=== PATIENT | female | born 1965 | race Two or more races ===

== ENCOUNTER → 2018-01-17 | Outpatient (CLI) | payer OTHER ==
[~2018-01-17] MED LIST: HYDR-2966 PO; IRON150C19 PO
--- NOTE | 2018-01-18 10:49 | RADIOLOGY IMAGING REPORT ---
FACILITY: [facility] PATIENT NAME: JAVI VALDOVINOS : [id number] MR: [id number] V: [id number] EXAM DATE: [id number] ORDERING PHYSICIAN: PEEWEE GLORIA TECHNOLOGIST: Elidia Bruno PROCEDURE:BILATERAL DIGITAL SCREENING MAMMOGRAM WITH CAD ASSISTED INTERPRETATION & 3D TOMOSYNTHESIS COMPARISON:Prior mammograms 06/12/12. INDICATIONS:screening FINDINGS: A small to moderate amount of fibroglandular tissue is seen throughout the breasts. The parenchymal pattern has remained stable allowing for difference in mammographic technique & patient positioning. There is no evidence of malignant appearing mass, malignant appearing calcifications or other secondary sign of malignancy in either breast. DIAGNOSTIC CATEGORY 1--NEGATIVE. RECOMMENDATIONS: ROUTINE MAMMOGRAM AND CLINICAL EVALUATION. IMPRESSION: BIRADS 1: Negative. No significant abnormality is seen. Dictated by: Desiree Rhodes M.D. on 01/17/2018 at 16:12 Transcribed by: ELISE on 01/17/2018 at 16:22 Approved by: Desiree Rhodes M.D. on 01/18/2018 at 10:48 [facility]
== END ==
LOC: MAMO 01:42
PROVIDERS: ATTEND Nurse Practitioner
DX: Z12.31 Encounter for screening mammogram for malignant neoplasm of breast (principal)
CPT/HCPCS: 77063; 77067

== ENCOUNTER → 2018-03-01 | Outpatient (REF) ==
--- NOTE | 2018-03-01 16:18 | RADIOLOGY IMAGING REPORT ---
FACILITY: [facility] - [place] PATIENT NAME: Daisy Vázquez : 1965 MR: [id number] V: [id number] EXAM DATE: ORDERING PHYSICIAN: PEEWEE GLORIA TECHNOLOGIST: Location: [facility] Patient: Daisy Vázquez : 1965 Visit/Account:[id number] Date of Sevice: 03/01/2018 PELVIC HISTORY: Evaluate for pelvic mass. TECHNIQUE: Transabdominal and transvaginal ultrasound pelvis. COMPARISON: None. FINDINGS: Uterus: Anteverted; 11.4 cm length x 6.3 cm AP x 3.7 cm transverse. Myometrium: There are 2 hypoechoic areas in the fundus intramural, representing fibroids. The larges t measures 1.7 cm.. Endometrium: Homogeneous echotexture, slightly thickened.; double thickness 21 mm. Cervix: Grossly negative. Ovaries: Right - 2.6 x 1.8 x 3.1 cm Left - 1.4 x 2.0 x 2.8 cm Blood flow is documented in each ovary by duplex Doppler ultrasound. Adnexa: Grossly unremarkable. Free pelvic fluid: None. IMPRESSION: 1. Normal right and left adnexa. Both ovaries are normal size. 2. Mild thickening of the endometrial stripe, measuring 21 mm. Differential diagnosis includes monroe gn endometrial hyperplasia, and endometrial cancer. Recommend endometrial biopsy for further evaluat ion. 3. 2 small fibroids, largest measures 1.7 cm. Report Dictated By: Harvinder Mcdonald at 03/01/2018 4:06 PM Report E-Signed By: Harvinder Mcdonald at 03/01/2018 4:15 PM WSN:ADAM
--- NOTE | 2018-03-01 16:23 | RADIOLOGY IMAGING REPORT ---
FACILITY: [facility] - [place] PATIENT NAME: Daisy Vázquez : 1965 MR: [id number] V: [id number] EXAM DATE: ORDERING PHYSICIAN: PEEWEE GLORIA TECHNOLOGIST: Location: [facility] [place] Patient: Daisy Vázquez : 1965 Visit/Account:[id number] Date of Sevice: 03/01/2018 US SINGLE ORGAN Indication: Incomplete bladder emptying Comparison: None. Findings: The bladder demonstrates normal echotexture. Prevoid volume 458 mL, postvoid volume 13.9 m L. IMPRESSION: Normal bladder ultrasound. Normal prevoid and postvoid volume seen. Report Dictated By: Harvinder Mcdonald at 03/01/2018 4:16 PM Report E-Signed By: Harvinder Mcdonald at 03/01/2018 4:19 PM WSN:ADAM
== END ==
LOC: US 02-13 01:11
PROVIDERS: ATTEND Nurse Practitioner
DX: D25.9 Leiomyoma of uterus, unspecified (principal)
CPT/HCPCS: 76705; 76830; 76856